=== PATIENT | male | born 1950 | race Caucasian/White ===

== ENCOUNTER 2018-07-03 14:06 | Outpatient (CLI) | payer MEDICARE | END 2018-07-03 14:07 | disposition home or self-care (01) | LOC: NAV EKG 14:06 | PROVIDERS: ATTEND Family Medicine | DX: I49.9 Cardiac arrhythmia, unspecified (principal); R53.83 Other fatigue; E78.00 Pure hypercholesterolemia, unspecified; R94.31 Abnormal electrocardiogram [ECG] [EKG] | CPT/HCPCS: 93005 ==

== ENCOUNTER 2018-07-30 14:15 | Outpatient (CLI) | payer MEDICARE ==
--- NOTE | 2018-07-30 14:47 | RAD ---
PA AND LATERAL CHEST: History: Cough. FINDINGS: The heart size is normal. The aorta is tortuous. The lungs are well expanded without focal areas of c onsolidation, pneumothoraces or pleural effusions. IMPRESSION: No radiographic evidence of acute cardiopulmonary process. POS: [facility]
== END 2018-07-30 14:16 | disposition home or self-care (01) ==
LOC: NAV RAD 14:15
PROVIDERS: ATTEND Specialist
DX: R05 Cough (principal); Z87.891 Personal history of nicotine dependence
CPT/HCPCS: 71046

== ENCOUNTER 2022-02-17 14:04 | Emergency (ER) | payer MEDICARE ==
[2022-02-17] MEDS ORDERED: methylPREDNISolone Sod Succ/PF 125 MG/2 ML VIAL ONE (14:22)
== END 2022-02-17 14:49 | disposition home or self-care (01) ==
LOC: NAV ERS 14:04
DX: T78.40XA Allergy, unspecified, initial encounter (principal)
CPT/HCPCS: 96372; 99282; J2930

== ENCOUNTER 2022-08-27 09:54 | Emergency (ER) | payer MEDICARE ==
[2022-08-27 11:10] LABS: #Basophils 0.1 thou/uL (0.0-0.2); #Eosinphils 0.1 thou/uL (0.0-0.7); #Monocytes 0.9 thou/uL (0.11-0.59); #Neutrophils 4.5 thou/uL (1.40-6.50); %Basophils 1.7 % (0.0-1.0); %Eosinophils 0.9 % (0.0-10.0); %Lymphocytes 26.8 % (21.0-51.0); %Monocytes 11.3 % (0.0-10.0); %Neutrophils 59.4 % (42.0-75.0); Hemoglobin 15.7 g/dL (14.0-18.0); Mean Corpuscular HGB CONC 32.1 g/dL (32.0-36.0); Mean Corpuscular Volume 96.8 fl (78.0-98.0); Mean Platelet Volume 7.4 fL (7.4-10.4); Platelet Count 312 thou/uL (130-400); Red Blood Cell (RBC) Count 5.07 mill/uL (4.70-6.10); White Blood Cell (WBC) Count 7.5 thou/uL (4.8-10.8)
[2022-08-27 11:29] LABS: ALT (SGPT) 18 U/L (8-55); AST (SGOT) 19 U/L (5-34); Albumin 4.1 g/dL (3.4-4.8); Alkaline Phosphatase 76 U/L (40-110); Anion Gap 18 mmol/L (10-20); BUN (Urea Nitrogen) 13 mg/dL (8.4-25.7); Bilirubin, Total 0.7 mg/dL (0.2-1.2); Calc. Creatinine Clearance 0 mL/min (70-130); Calcium 8.9 mg/dL (7.8-10.44); Carbon Dioxide 23 mmol/L (23-31); Chloride 100 mmol/L (98-107); Estimated GFR 79; Glucose 93 mg/dL (83-110); Potassium 4.3 mmol/L (3.5-5.1); Protein, Total 7.1 g/dL (5.8-8.1); Sodium 137 mmol/L (136-145)
[2022-08-27 11:35] LABS: Bilirubin Negative (Negative); Blood, Urine Negative (Negative); Clarity Clear (Clear); Glucose, Urine (Dipstick) Negative (Negative); Ketone, Urine Negative (Negative); Leukocyte Negative (Negative); Nitrite Negative (Negative); Protein, Urine (Dipstick) Negative (Neg-Trace); Specific Gravity, Urine 1.015 (1.005-1.030); Urobilinogen 0.2 mg/dL (Less than 2)
[2022-08-27] MEDS ORDERED: Sodium Chloride 0.9% 1,000 ML ONE (11:53)
== END 2022-08-27 12:50 | disposition home or self-care (01) ==
LOC: NAV ERS 09:54
DX: E86.0 Dehydration (principal); R53.81 Other malaise; Z20.822 Contact with and (suspected) exposure to COVID-19
CPT/HCPCS: 70450; 81003; 83880; 84484; 85379; 93005; U0003; U0005; 80053; 84443; 85025; 96360; J7050

== ENCOUNTER 2022-09-19 16:44 | Emergency (ER) | payer MEDICARE | END 2022-09-19 18:05 | disposition home or self-care (01) | LOC: NAV ERS 16:44 | DX: U07.1 COVID-19 (principal) | CPT/HCPCS: 87804 ×2; U0003; U0005; 99283 ==

== ENCOUNTER 2023-10-07 22:46 | Emergency (ER) | payer MEDICARE ==
[2023-10-07] MEDS ORDERED: Pantoprazole 40 MG VIAL ONE (23:11)
[2023-10-07] MEDS ORDERED: Mag-Al Plus 1200 MG/1200 MG/120 MG/30 ML UDCUP ONE (23:12)
[2023-10-07] MEDS ORDERED: Lidocaine Viscous Sol 2% 15 ml UD Cup ONE (23:12)
[2023-10-07 23:36] LABS: Hematocrit 48.5 % (42.0-52.0); Hemoglobin 16.2 g/dL (14.0-18.0); Mean Corpuscular HGB CONC 33.3 g/dL (32.0-36.0); Mean Corpuscular Hemoglobin 30.8 pg (27.0-31.0); Mean Corpuscular Volume 92.4 fl (78.0-98.0); Mean Platelet Volume 7.2 fL (7.4-10.4); Platelet Count 343 10x3/uL (130-400); Red Blood Cell (RBC) Count 5.25 mill/uL (4.70-6.10); White Blood Cell (WBC) Count 15.2 10x3/uL (4.8-10.8)
[2023-10-07 23:37] LABS: #Basophils 0.1 thou/uL (0.0-0.2); #Lymphocytes 2.4 thou/uL (1.20-3.40); #Neutrophils 11.7 thou/uL (1.40-6.50); %Basophils 0.3 % (0.0-1.0); %Eosinophils 0.2 % (0.0-10.0); %Monocytes 6.4 % (0.0-10.0); %Neutrophils 76.8 % (42.0-75.0); Manual Diff?? NO
[2023-10-07 23:51] LABS: Troponin I Less than 0.010 ng/mL (< 0.028)
[2023-10-08] MEDS ORDERED: Sodium Chloride 0.9% 1,000 ML ONE (00:05)
[2023-10-08] MEDS ORDERED: Ondansetron PF 4 MG/2 ML Vial ONE (00:05)
[2023-10-08] MEDS ORDERED: fentaNYL 50 mcg/mL 1 mL Vial ONE (00:05)
[2023-10-08 00:12] LABS: Chloride 100 mmol/L (98-107); Potassium 4.8 mmol/L (3.5-5.1); Sodium 137 mmol/L (136-145)
[2023-10-08 00:13] LABS: ALT (SGPT) 21 U/L (8-55); AST (SGOT) 33 U/L (5-34); Albumin 4.2 g/dL (3.4-4.8); Alkaline Phosphatase 83 U/L (40-110); BUN (Urea Nitrogen) 16 mg/dL (8.4-25.7); Bilirubin, Total 0.7 mg/dL (0.2-1.2); Calc. Creatinine Clearance 0 mL/min (70-130); Calcium 10.1 mg/dL (7.6-10.4); Carbon Dioxide 24 mmol/L (23-31); Estimated GFR 78; Globulin 3.8 g/dL (2.4-3.5); Glucose 111 mg/dL (83-110)
[2023-10-08 00:14] LABS: Lipase 1131 U/L (8-78)
[2023-10-08 00:15] LABS: Anion Gap 18 mmol/L (10-20)
== END 2023-10-08 02:02 | disposition short-term general hospital (02) ==
LOC: NAV ERS 22:46
DX: K85.90 Acute pancreatitis without necrosis or infection, unspecified (principal)
CPT/HCPCS: 71045; 80053; 83690; 84484; 85025; 93005; J3010; 96374; 96375; C9113; J2405; J7050

== ENCOUNTER 2024-04-07 11:16 | Emergency (ER) | payer MEDICARE, OTHER ==
[2024-04-07] MEDS ORDERED: Lidocaine 1% (PF) 30 ML VIAL ONE (11:40)
[2024-04-07] MEDS ORDERED: Boostrix 0.5 ML (Tdap) VIAL (>/=7 yrs of age) ONE (11:44)
[2024-04-07] MEDS ORDERED: Cephalexin 250 MG CAP ONE (12:35)
[2024-04-07] MEDS ORDERED: Bacitracin 1 PK ONE (12:35)
== END 2024-04-07 12:53 | disposition home or self-care (01) ==
LOC: NAV ERS 11:16
DX: S61.012A Laceration without foreign body of left thumb without damage to nail, initial encounter (principal); W26.8XXA Contact with other sharp object(s), not elsewhere classified, initial encounter; Z23 Encounter for immunization
CPT/HCPCS: 12004; 90471; 90715; J2001

== ENCOUNTER 2024-04-16 15:25 | Emergency (ER) | payer MEDICARE, OTHER ==
[2024-04-16] MEDS ORDERED: Bacitracin 1 PK ONE ×2 (15:40)
== END 2024-04-16 16:19 | disposition home or self-care (01) ==
LOC: NAV ERS 15:25
DX: S61.012D Laceration without foreign body of left thumb without damage to nail, subsequent encounter (principal); X58.XXXD Exposure to other specified factors, subsequent encounter

== ENCOUNTER 2024-09-29 14:26 | Emergency (ER) | payer MEDICARE, OTHER ==
[2024-09-29] MEDS ORDERED: Boostrix 0.5 ML (Tdap) VIAL (>/=7 yrs of age) ONE (15:20)
[2024-09-29] MEDS ORDERED: Clindamycin 150 MG CAP ONE (15:41)
[2024-09-29] MEDS ORDERED: Cipro 250 MG TAB ONE (15:42)
== END 2024-09-29 15:53 | disposition home or self-care (01) ==
LOC: NAV ERS 14:26
DX: S61.051A Open bite of right thumb without damage to nail, initial encounter (principal); L03.011 Cellulitis of right finger; Z23 Encounter for immunization; W54.0XXA Bitten by dog, initial encounter
CPT/HCPCS: 90471; 90715

== ENCOUNTER 2024-10-16 10:11 | Emergency (ER) | payer MEDICARE, OTHER ==
[2024-10-16 11:17] LABS: #Basophils 0.1 thou/uL (0.0-0.2); #Eosinophils 0.1 thou/uL (0.0-0.7); #Lymphocytes 2.3 thou/uL (1.20-3.40); #Monocytes 0.8 thou/uL (0.11-0.59); %Basophils 1.4 % (0.0-1.0); %Monocytes 10.1 % (0.0-10.0); %Neutrophils 60.5 % (42.0-75.0); Hematocrit 44.7 % (42.0-52.0); Hemoglobin 14.3 g/dL (14.0-18.0); Mean Corpuscular HGB CONC 32.1 g/dL (32.0-36.0); Mean Corpuscular Hemoglobin 29.2 pg (27.0-31.0); Mean Corpuscular Volume 91.1 fl (78.0-98.0); Mean Platelet Volume 7.1 fL (7.4-10.4); Platelet Count 435 10x3/uL (130-400); RBC Distribution Width 11.6 % (11.5-14.5); Red Blood Cell (RBC) Count 4.91 mill/uL (4.70-6.10); White Blood Cell (WBC) Count 8.3 10x3/uL (4.8-10.8)
[2024-10-16 11:33] LABS: ALT (SGPT) 21 U/L (8-55); AST (SGOT) 22 U/L (5-34); Alkaline Phosphatase 95 U/L (40-110); Anion Gap 15 mmol/L (10-20); BUN (Urea Nitrogen) 19 mg/dL (8.4-25.7); Bilirubin, Total 0.5 mg/dL (0.2-1.2); Calc. Creatinine Clearance 0 mL/min (70-130); Calcium 9.5 mg/dL (7.8-10.44); Carbon Dioxide 23 mmol/L (23-31); Chloride 104 mmol/L (98-107); Estimated GFR 83; Glucose 91 mg/dL (83-110); Potassium 4.2 mmol/L (3.5-5.1); Sodium 138 mmol/L (136-145)
== END 2024-10-16 11:17 | disposition left against medical advice (07) ==
LOC: NAV ERS 10:11
DX: M79.641 Pain in right hand (principal); W54.0XXA Bitten by dog, initial encounter
CPT/HCPCS: 36415; 80053; 83605; 85025; 87040; 99283

== ENCOUNTER 2025-01-07 09:33 | Emergency (ER) | payer MEDICARE | END 2025-01-07 11:20 | disposition home or self-care (01) | LOC: NAV ERS 09:33 | DX: J20.8 Acute bronchitis due to other specified organisms (principal); B97.89 Other viral agents as the cause of diseases classified elsewhere; K21.9 Gastro-esophageal reflux disease without esophagitis; Z79.899 Other long term (current) drug therapy | CPT/HCPCS: 70220; 71046; 87428 ==

== ENCOUNTER 2025-10-22 10:03 | Emergency (ER) | payer MEDICARE | END 2025-10-22 11:30 | disposition home or self-care (01) | LOC: NAV ERS 10:03 | DX: M25.561 Pain in right knee (principal); K21.9 Gastro-esophageal reflux disease without esophagitis; I10 Essential (primary) hypertension; X50.9XXA Other and unspecified overexertion or strenuous movements or postures, initial encounter; Z79.899 Other long term (current) drug therapy | CPT/HCPCS: 99283 ==